=== PATIENT | female | born 1965 | race Caucasian/White ===

== ENCOUNTER 2016-12-15 11:08 | Day surgery (SDC) | payer BC ==
[2016-12-14 08:12] LABS: BASOPHILS % (AUTO) 0.5 % (0.0-2.0); EOSINOPHILS # (AUTO) 0.1 K/uL (0.0-0.4); EOSINOPHILS % (AUTO) 1.8 % (0.0-4.0); HEMATOCRIT 41.6 % (36-48); HEMOGLOBIN 13.9 g/dL (12.0-16.0); LYMPHOCYTES # (AUTO) 1.9 K/uL (1.0-5.5); LYMPHOCYTES % (AUTO) 37.5 % (20.5-51.5); MEAN CORPUSCULAR HEMOGLOBIN 30 pg (27-31); MEAN CORPUSCULAR HGB CONC 33 % (32-36); MEAN CORPUSCULAR VOLUME 89 fL (79.0-98.0); MONOCYTES # (AUTO) 0.4 K/uL (0.0-1.0); MONOCYTES % (AUTO) 7.6 % (1.7-9.3); NEUTROPHILS # (AUTO) 2.5 K/uL (1.8-7.7); NEUTROPHILS % (AUTO) 52.6 % (40.0-70.0); PLATELET COUNT (AUTO) 268 K/uL (130-430); RED CELL DISTRIBUTION WIDTH 12.4 % (9.0-15.0); WHITE BLOOD COUNT (AUTO) 4.9 K/uL (4.8-10.8)
[2016-12-14 08:35] LABS: ALBUMIN 4.2 g/dL (3.4-4.8); CALCIUM 9.4 mg/dL (8.4-11.0); CREATININE 0.68 mg/dL (0.55-1.30); POTASSIUM 4.3 mmol/L (3.5-5.1); TOTAL BILIRUBIN 0.4 mg/dL (0.0-1.0); TOTAL PROTEIN, SERUM 8.3 g/dL (6.4-8.3)
[~2016-12-15] VITALS: Ht 160 cm; Wt 67.1 kg
[2016-12-15] MEDS ORDERED: CEFAZOLIN 2 GM IVPB PREMIX 50 ML IV ONE (13:29)
[2016-12-15] MEDS ORDERED: SEVOFLURANE 15 MIN GAS INH ONE (13:29)
[2016-12-15] MEDS ORDERED: LR 1,000 ML IV.SOLN IV ONE (13:29)
[2016-12-15] MEDS ORDERED: MIDAZOLAM HCL 5 MG/5 ML VIAL IVP ONE (13:29)
[2016-12-15] MEDS ORDERED: ONDANSETRON HCL 4 MG/2 ML VIAL IVP ONE (13:29)
[2016-12-15] MEDS ORDERED: PROPOFOL 200MG/ 20ML VIAL (DIPRIVAN) IV ONE (13:29)
[2016-12-15] MEDS ORDERED: NS IRRIG SOLN 1000 ML IR ONE (13:29)
[2016-12-15] MEDS ORDERED: KETOROLAC TROMETHAMINE 30 MG VIAL IVP ONE (13:29)
[2016-12-15] MEDS ORDERED: MEPERIDINE HCL/PF 100 MG/ML AMP IM ONE (13:29)
[2016-12-15] MEDS ORDERED: ONDANSETRON HCL 4 MG/2 ML VIAL IVP PRN ×2 (13:45→14:00)
[2016-12-15] MEDS ORDERED: MORPHINE 4 MG/ML INJ. SYRINGE IVP PRN (13:45)
[2016-12-15] MEDS ORDERED: ACETAMINOPHEN/CODEINE 300 MG-30 MG TABLET PO PRN (13:45)
[2016-12-15] MEDS ORDERED: IBUPROFEN 800 MG TABLET PO PRN (13:45)
[2016-12-15] MEDS ORDERED: LR 1,000 ML IV SCH (13:59)
[2016-12-15] MEDS ORDERED: MEPERIDINE HCL/PF 25 MG/ML DISP.SYRIN IVP PRN ×2 (14:00)
[2016-12-15] MEDS ORDERED: HYDROmorphone 2 MG/ML VIAL IVP PRN ×2 (14:00)
[2016-12-15] MEDS ORDERED: HYDROmorphone 1 MG INJ. 1 MG/ML AMPUL IVP PRN (14:00)
[2016-12-15 16:37] VITALS: BP_SYST 113
== END 2016-12-15 17:53 | disposition home or self-care (01) ==
LOC: SDS 11:08 → SMU 11:09 → SDS 17:53
PROVIDERS: ATTEND Obstetrics & Gynecology
DX: N87.9 Dysplasia of cervix uteri, unspecified (principal)
CPT/HCPCS: 36415; 57522; 80053; 84702; 85025; 88305; J0690; J1885; J2175; J2250; J2405; J2704; J7120